=== PATIENT | female | born 1980 | race Two or more races ===

== ENCOUNTER 2025-08-20 21:42 | Emergency (ER) | payer MEDICAID, SELFPAY ==
[2025-08-20 21:43] VITALS: BMI 30.1
[2025-08-20 23:08] VITALS: BP 105/70; PULSE 71; RESP 18; TEMP 36.8; O2SAT 97
--- NOTE | 2025-08-20 23:12 | XR_ITS ---
Examination: CT brain head without contrast. 2-D sagittal coronal reconstructions Date and time of exam:August 21, 2025, 0038 hrs. Indications: Patient hit head on refrigerator, falling to the ground with head pain loss CTDI: vol (mGy):44.1 DLP: (mGycm):803 Technique: Multiple CT axial sections of the brain have been obtained, 5 mm slice thickness. Contrast has not been administered. 2-D sagittal, coronal reconstructions have been obtained Low dose protocols were performed. One or more of the following dose reduction techniques were used; automated exposure control, adjustment of the mA and/or KV according to patient size, use of iterative reconstruction technique. Findings: No significant ventricular enlargement. Intra-axial or extra-axial hemorrhage density is not seen. No mass effect or midline shift Basal cisterns are not remarkable. Fourth ventricle is midline. Cranial vault intact. Impression: Negative for acute hemorrhage, mass effect or midline shift
--- NOTE | 2025-08-20 23:13 | EDNOTE_ITS ---
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 Patient denies vision changes, N/V, and seizures. Possible confusion. Limitations: no limitations Related Data Previous Rx's ?Medication ?Instructions ?Recorded diphenhydramine HCl 25 mg capsule 25 mg PO Q8H PRN all ergic symptoms 11/10/22 (Benadryl) #30 caps Allergies Allergy/AdvReac Type Severity Reaction Status Date / Time nut - unspecified Allergy Intermediate Anaphylaxis Verified 06/23/23 19:14 Review of Systems Review of Systems Systems Reviewed: All systems reviewed, normal except as documented Constitutional Constitutional: Reports as per HPI and Reports headache(s) (pain) ENT Ears, Nose, Mouth, and Throat: Reports headache(s) (pain) Neurologic Neurologic: Reports headache(s) (pain) Past Medical History Social History SMOKING STATUS: Never smoker ED Exam General Limitations: Present no limitations General appearance: Present alert and in no apparent distress Head Head exam: Present atraumatic Eye Eye exam: Present normal appearance, PERRL and EOMI Neck Neck exam: Present normal inspection, full ROM and trachea midline Chest Chest inspection: Present normal inspection and symmetric chest wall rise Neurological Exam Neurological exam: Present alert and oriented X3 Psychiatric Psychiatric exam: Present normal affect and normal mood Skin Skin exam: Present warm, dry, intact and normal color Course Quality Measures none Orders Category Date Time Status CT head/brain wo con Stat Exams 08/20/25 23:12 Taken Naproxen [Naprosyn] Med 08/21/25 01:10 Once 500 mg PO X1 ONE Vital Signs Vital signs: Vital Signs Temperature 98.2 F 08/20/25 23:08 Pulse Rate 71 08/20/25 23:08 Respiratory Rate 18 08/20/25 23:08 Blood Pressure 105/70 08/20/25 23:08 Pulse Oximetry (%) 97 08/20/25 23:08 Oxygen Delivery Method Room Air 08/20/25 23:08 O2 at 97% on RA and WNLs Head Injury MDM Narrative MDM Narrative:: 44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 Patient denies vision changes, N/V, and seizures. Possible confusion. Physical exam reveals normal pupil response and EOM. Speech normal. Gait normal. Patient is afebrile, calm, and alert. Patient wants CT, which was unremarkable based on [employer] reading. Food Cooking Machine Operator given. Patient data External records reviewed:: [facility] previous records Clinical information provided by:: patient Social determinants that could affect healthcare access:: none Patient has the following chronic illnesses:: autoimmune How is presenting disease/condition affected by chronic disease/condition?: uneffected by Evaluation data The following diagnostics were reviewed and interpreted by me:: radiology exam(s) Lab and/or radiology exams considered but not ordered:: ordered Interpretation Summary: above Medications / Prescriptions Medications or Prescriptions considered but not ordered:: ordered Medication administrations:: Medication Administration History Discontinued Medications Naproxen (Naproxen 250 Mg Tablet) 500 mg PO X1 ONE Stop: 08/21/25 01:11 patient declined Consultations Consultation(s) initiated? (list below): No Diagnosis Differential diagnosis head injury: concussion without loss of consciousness, epidural hematoma, closed head injury, subarachnoid hematoma, postconcussion syndrome and subdural hematoma Most likely diagnosis given after review of the tests above:: [facility] Admission Indicated Admission indicated?: not indicated Admission Request Was there a request for admission?: No Disposition Plan Disposition Plan: Discharge Discharge Attestation Discharge Attestation: The patient and all family members were given an opportunity to ask questions and understood the discharge instructions. Discharge instructions specifically effects, indications for sooner follow up or return to the emergency department, and the expected course of current diagnosis. Patient condition: Stable Discharge Plan Plan Patient Disposition: HOME (Self Care) Discharge Disposition comment: Stable Prescriptions/Referrals Prescriptions/Med Rec: No Action diphenhydramine HCl [Benadryl] 25 mg capsule 25 mg PO Q8H PRN (Reason: allergic symptoms) Qty: 30 0RF Referrals: Nicole Altamirano MD [Primary Care Provider] - In 1 week Problem List Clinical Impression: Closed head injury Patient/Caregiver Discharge Instructions Education Materials: ED Head Injury (Adult) Additional Instructions: Please follow-up with PCP within 24-48 hours and return immediately if symptoms worsen. Print Language: Kiswahili Stand Alone Forms: Patient Portal Info Letter PA/MAIL HANDLER EQUIPMENT OPERATOR Supervising Physician PA/MAIL HANDLER EQUIPMENT OPERATOR Supervising Physician: Dr. Hutson
--- NOTE | 2025-08-21 01:06 | PRELIM_ITS ---
CT scan of the head without intravenous contrast (axial sections with sagittal and coronal reformats) August 21, 2025 0038 hours Clinical History: Hit head on fridge No prior study is available for comparison. Findings: No evidence of intracranial hemorrhage, mass effect or midline shift. The ventricles and CSF spaces are unremarkable. The calvarium is intact. The mastoid air cells and the visualized paranasal sinuses are clear. Impression: No evidence of intracranial hemorrhage, midline shift or calvarial fracture. Report Electronically Signed By: Bo Villanueva 08/21/2025 1:05:40 AM [EST]
--- NOTE | 2025-08-21 01:23 | PC.NURSE ---
PT REFUSED PAIN MEDICATION
== END 2025-08-21 01:23 | disposition home or self-care (01) ==
PROVIDERS: Emergency Provider Emergency Medicine; PCP Internal Medicine
DX: S09.90XA Unspecified injury of head, initial encounter (principal); W22.8XXA Striking against or struck by other objects, initial encounter
CPT/HCPCS: 70450; 99283